=== PATIENT | male | born 1985 | race Caucasian/White ===

== ENCOUNTER 2018-12-09 07:09 | Emergency (ER) | payer OTHER ==
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
[2018-12-09 09:08] VITALS: BP 121/82; PULSE 92; RESP 18; TEMP 97.3
== END 2018-12-09 09:07 | disposition home or self-care (01) ==
LOC: EC 07:09
DX: S16.1XXA Strain of muscle, fascia and tendon at neck level, initial encounter (principal); Z53.29 Procedure and treatment not carried out because of patient's decision for other reasons; V40.5XXA Car driver injured in collision with pedestrian or animal in traffic accident, initial encounter; Y92.410 Unspecified street and highway as the place of occurrence of the external cause
CPT/HCPCS: 72050; 82075; 99284